=== PATIENT | female | born 1960 | race Caucasian/White ===

== ENCOUNTER 2021-12-12 05:35 | Emergency (ER) | payer BC ==
[2021-12-12 06:17] LABS: HEMOGLOBIN 14.1 gm/dl (12.3-15.3); RED BLOOD COUNT 4.88 M/UL (4.00-5.10); WHITE BLOOD COUNT 6.1 K/UL (4.5-11.0)
[2021-12-12 06:57] LABS: BUN/CREATININE RATIO 21 (0-10)
[2021-12-12] MEDS ORDERED: ANTIVERT 12.512.5 MG PO (08:26)
== END 2021-12-12 08:50 | disposition home or self-care (01) ==
LOC: ER1 05:35
PROVIDERS: Emergency Medicine
DX: H81.10 Benign paroxysmal vertigo, unspecified ear (principal); R03.0 Elevated blood-pressure reading, without diagnosis of hypertension
CPT/HCPCS: 70450; 70496; 70498; 80053; 82550; 82553; 84484; 85025; 93005; 99284; Q9967